=== PATIENT | female | born 1975 | race Hispanic/Latino ===

== ENCOUNTER → 2018-12-13 | Outpatient (CLI) | payer OTHER | LOC: MAMMO 09:36 → EDBD 09:36 | PROVIDERS: ATTEND Internal Medicine | DX: Z12.31 Encounter for screening mammogram for malignant neoplasm of breast (principal) | CPT/HCPCS: 77067 ==

== ENCOUNTER → 2021-03-29 | Outpatient (CLI) | payer MEDICARE | LOC: MAMMO 12:00 | PROVIDERS: ATTEND Internal Medicine | DX: Z12.31 Encounter for screening mammogram for malignant neoplasm of breast (principal) | CPT/HCPCS: 77067 ==

== ENCOUNTER 2022-04-30 09:21 | Emergency (ER) | payer MEDICARE ==
[~2022-04-30] VITALS: Ht 152.4 cm; Wt 54.4 kg
[2022-04-30 11:06] VITALS: BP 127/77
== END 2022-04-30 11:09 | disposition home or self-care (01) ==
LOC: ER 09:46
DX: R05.9 Cough, unspecified (principal); J40 Bronchitis, not specified as acute or chronic; G40.909 Epilepsy, unspecified, not intractable, without status epilepticus; Z20.822 Contact with and (suspected) exposure to COVID-19
CPT/HCPCS: 71045; 87400; 99283; U0002